=== PATIENT | male | born 1985 | race Caucasian/White ===

== ENCOUNTER 2018-10-30 12:54 | Emergency (ER) | payer SELFPAY ==
[2018-10-30 13:08] VITALS: BP 160/101; PULSE 85; TEMP 98.1; BMI 40.8
--- NOTE | 2018-10-30 13:26 | PDOC ---
History of Present Illness - General Chief Complaint: Foreign Body (FB) Stated Complaint: RT FOOT INJURY Time Seen by Provider: 10/30/18 13:05 History Source: Patient Exam Limitations: No Limitations - History of Present Illness Initial Comments: 10/30/18 13:27 HISTORY OF PRESENT ILLNESS: 33-year-old male denies medical history presents emergency department for evaluation of right foot pain status post stepping on glass one week ago. Patient reports was a broken Snapple bottle outside front door when she stepped I will barefoot. Patient was able to remove a large shard of glass at that time but is having continued pain to the area since then. No recent travel or sick contacts. PAST MEDICAL HISTORY: Denies past medical history SURGICAL HISTORY: Denies ALLERGIES: No known drug allergies REVIEW OF SYSTEMS General/Constitutional: Denies fever or chills. Denies weakness, weight change. HEENT: Denies change in vision. Denies ear pain or discharge. Denies sore throat. Cardiovascular: Denies chest pain or shortness of breath. Respiratory: Denies cough, wheezing, or hemoptysis. Gastrointestinal: Denies nausea, vomiting, diarrhea or constipation. Denies rectal bleeding. Genitourinary: Denies dysuria, frequency, or change in urination. Musculoskeletal: see HPI Skin and breasts: Denies rash or easy bruising. Neurologic: Denies headache, vertigo, loss of consciousness, or loss of sensation. Psychiatric: Denies depression or anxiety. Endocrine: Denies increased thirst. Denies abnormal weight change. Hematologic/Lymphatic: Denies anemia, easy bleeding, or history of blood clots. Allergic/Immunologic: Denies hives or skin allergy. Denies latex allergy. PHYSICAL EXAM General Appearance: Well-appearing, appropriately dressed. No apparent distress , no intoxication. Respiratory/Chest: Lungs CTAB. No shortness of breath, chest tenderness, respiratory distress, accessory muscle use. No crackles, rales, rhonchi, stridor , wheezing, dullness Cardiovascular: RRR. S1, S2. No JVD, murmur, bradycardia, tachycardia. Gastrointestinal/Abdominal: Normal bowel sounds. Abdomen soft, non-distended. No tenderness or rebound tenderness. No organomegaly, pulsatile mass, guarding, hernia, hepatomegaly, splenomegaly. Lymphatic: No adenopathy, tenderness. Musculoskeletal/Extremities: Normal inspection. FROM of all extremities, normal capillary refill. Pelvis Stable. No CVA tenderness. No tenderness to extremities, pedal edema, swelling, erythema or deformity. Tenderness to palpation over the plantar surface of the right foot over the fifth MTP. No erythema, discharge or fluctuance present. 10/30/18 13:28 Past History - Past Medical History Allergies/Adverse Reactions: Allergies Allergy/AdvReac Type Severity Reaction Status Date / Time No Known Allergies Allergy Verified 03/05/13 19:47 Home Medications: Ambulatory Orders No Home Medications 0 dose .ROUTE UTDICT 03/05/13 - Suicide/Smoking/Psychosocial Hx Smoking History: Never smoked Have you smoked in the past 12 months: No Information on smoking cessation initiated: No Hx Alcohol Use: No Drug/Substance Use Hx: No Substance Use Type: None *Physical Exam - Vital Signs Last Vital Signs Temp Pulse Resp BP Pulse Ox 98.1 F 85 20 160/101 H 100 10/30/18 13:00 10/30/18 13:00 10/30/18 13:00 10/30/18 13:00 10/30/18 13:00 Medical Decision Making - Medical Decision Making 10/30/18 13:31 A/P: 33-year-old male with right plantar foot pain No signs of infection or foreign body present to plantar surface of the right foot Previous foreign body site probes without any evidence of foreign body present. I will discharge the patient home with podiatry follow-up *DC/Admit/Observation/Transfer Diagnosis at time of Disposition: Foot pain, right - Discharge Dispostion Disposition: HOME Condition at time of disposition: Stable Decision to Admit order: No - Referrals Referrals: Aaron Nieto DPM [Staff Physician] - - Patient Instructions Additional Instructions: Dr. Nieto is a naturopathic oncology provider whose office is open until 3:00 today. Phone number is [phone]. Call to schedule an appointment potentially for today. Return to emergency department for any new or worsening symptoms Thank you very much for choosing us to provide your emergent health care needs. - Post Discharge Activity Forms/Work/School Notes: Back to Work
== END 2018-10-30 13:30 | disposition home or self-care (01) ==
LOC: JERFT 12:54
DX: M79.671 Pain in right foot (principal)
CPT/HCPCS: 99281-25

== ENCOUNTER 2020-12-07 14:12 | Emergency (ER) | payer OTHER ==
[2020-12-07 14:24] VITALS: PULSE 77; TEMP 98; BMI 54.8
[2020-12-07 15:31] LABS: BASO % 0.7 % (0-2.0); EOS % 1.9 % (0-4.5); HEMATOCRIT 47.3 % (35.4-49); HEMOGLOBIN 16.2 GM/dL (11.7-16.9); LYMPH % 19.1 % (8-40); MCHC 34.2 g/dl (32.0-35.9); MEAN CELL VOLUME 84.8 fl (80-96); MEAN PLT VOLUME 7.7 fl (7.5-11.1); NEUT % 71.3 % (42.8-82.8); PLATELET COUNT 205 10^3/uL (134-434); RBC 5.58 M/mm3 (4.00-5.60); RDW 14.8 % (11.9-15.9); WHITE BLOOD COUNT 8.6 K/mm3 (4.0-10.0)
[2020-12-07 15:35] LABS: INR 0.99 (0.83-1.09); PROTHROMBIN TIME (PATIENT) 12.2 SEC (9.7-13.0)
[2020-12-07 15:37] LABS: ACTIVATED PTT 32.6 SECONDS (25.2-36.5)
[2020-12-07 15:49] LABS: CHLORIDE 102 mmol/L (98-107); SODIUM 137 mmol/L (136-145)
[2020-12-07 15:53] LABS: CALCIUM 8.9 mg/dL (8.5-10.1)
[2020-12-07 15:54] LABS: ALBUMIN 3.6 g/dl (3.4-5.0); ANION GAP 6 MMOL/L (8-16); BLOOD UREA NITROGEN 11.6 mg/dL (7-18); CO2 28 mmol/L (21-32); GLUCOSE,RANDOM 82 mg/dL (74-106); MAGNESIUM 1.9 mg/dL (1.8-2.4)
[2020-12-07 15:57] LABS: CREATININE 1.1 mg/dL (0.55-1.3); SGOT/AST 22 U/L (15-37); SGPT/ALT 52 U/L (13-61)
[2020-12-07 15:58] LABS: BILIRUBIN,TOTAL 0.7 mg/dL (0.2-1)
[2020-12-07 15:59] LABS: TOT PROT 7.5 g/dl (6.4-8.2)
[2020-12-07 16:00] LABS: ALK PHOS 90 U/L (45-117)
[2020-12-07 18:26] VITALS: BP 173/98
== END 2020-12-07 18:42 | disposition home or self-care (01) ==
LOC: JER 14:12 → JERFT 14:12
DX: R07.89 Other chest pain (principal); R03.0 Elevated blood-pressure reading, without diagnosis of hypertension
CPT/HCPCS: 36415; 71046-TC-FY; 80053; 82550; 83735; 84484; 85025; 85610; 85730; 93005; 93010; 99284-25